=== PATIENT | male | born 1950 | race Two or more races ===

== ENCOUNTER 2020-01-15 21:11 | Inpatient (IN) | payer MEDICAID, OTHER ==
[~2020-01-15] VITALS: Ht 170.2 cm; Wt 82.5 kg
[2020-01-15] MEDS ORDERED: PANTOPRAZOLE 40mg/50ML NS AE 50 ML IV ONE (23:15)
[2020-01-15] MEDS ORDERED: SODIUM CHLORIDE 0.9% 1,000 ML IV ONE ×2 (23:15)
[2020-01-15] MEDS ORDERED: PANTOPRAZOLE 40 MG/10 ML VIAL INJ IV ONE (23:15)
[2020-01-16] VITALS (14 sets, daily range): BP systolic 132–157; BP diastolic 48–77
[2020-01-16 00:09] LABS: Basophils # (auto) 0 10 ^3/uL (0-0.2); Basophils % (auto) 0.4 % (0.0-2.0); Eosinophils # (auto) 0.1 10 ^3/uL (0-0.8); Mean Corpuscular Hgb Conc. 32.5 g/dL (32.0-36.0)
[2020-01-16 00:11] LABS: Eosinophils % (auto) 1.3 % (0.0-7.0); Hematocrit 18.6 % (41.0-53.0); Lymphocytes # (auto) 1.4 10 ^3/uL (0.4-5.4); Lymphocytes % (auto) 15.2 % (10.0-50.0); Mean Corpuscular Hemoglobin 32.5 pg (28.0-32.0); Mean Corpuscular Volume 100.1 fL (80.0-100.0); Monocytes # (auto) 0.5 10 ^3/uL (0-1.3); Monocytes % (auto) 5.4 % (0.0-12.0); Neutrophils % (auto) 77.7 % (37.0-80.0); Platelet Count (auto) 147 10^3/uL (140-450); Red Blood Cells 1.85 10^6/uL (4.5-5.90); Red Cell Distribution Width 13.7 % (11.8-14.3); White Blood Cell 9.1 10^3/uL (4.4-10.8)
[2020-01-16 00:25] LABS: INR 1.03 (0.9-1.15)
[2020-01-16 00:28] LABS: Albumin 2.6 g/dL (3.4-5.0); BUN/Creatinine Ratio 14.5; Calcium 7.5 mg/dL (8.5-10.1)
[2020-01-16 00:31] LABS: Bilirubin, Total 0.5 mg/dL (0.2-1.0); Total Protein 5.8 g/dL (6.4-8.2)
[2020-01-16 00:40] LABS: Potassium 6.2 mmol/L (3.5-5.1)
[2020-01-16] MEDS ORDERED: ONDANSETRON HCL 4 MG/2 ML VIAL IV ONE (00:45)
[2020-01-16] MEDS ORDERED: ALBUTEROL SULF 2.5 MG/0.5ML(0.5%) NEB SOLN NEB ONE (00:45)
[2020-01-16] MEDS ORDERED: MORPHINE SULFATE 4 MG/ML SYR/VIAL IV ONE (00:45)
[2020-01-16] MEDS ORDERED: InsuLIN REG 1unit/0.01ml Soln (100units/ml) IV ONE (00:45)
[2020-01-16] MEDS ORDERED: SODIUM BICARBONATE 8.4% INJ 50ML SYRINGE IV ONE (00:45)
[2020-01-16] MEDS ORDERED: CALCIUM GLUC 4.65meq/50ml D5AE 50 ML IV ONE (00:45)
[2020-01-16] MEDS ORDERED: DEXTROSE (50%) 50ML SYRG IV ONE (00:45)
[2020-01-16] MEDS ORDERED: NITROGLYCERIN 0.4 MG SL TAB SL PRN (02:00)
[2020-01-16] MEDS ORDERED: MORPHINE SULF INJ 2 MG/ML SYRINGE 1ML IV PRN (02:00)
[2020-01-16] MEDS ORDERED: ACETAMINOPHEN 325 MG TAB PO PRN (02:52)
[2020-01-16 04:47] LABS: Urine Bacteria NONE SEEN /hpf (None Seen); Urine Blood Negative /uL (Negative); Urine Hyaline Cast FEW /lpf (0 - 2); Urine Specific Gravity 1.014 (1.001-1.035); Urine WBC <1 /hpf (0 - 3)
--- NOTE | 2020-01-16 05:00 | NUR ---
Telemetry admit from ER RINKU REESE admitted to Telemetry unit after SBAR received. Patient oriented to RUBI MCGREGOR, RN primary RN, unit, room, bed, and unit policies regarding patient care and visiting hours. Patient now on continuous telemetry monitoring, tele box #39 and telemetry reading on arrival to unit is NSR. Patient placed on bedside weighed by bedscale and encouraged to call if they need something. Patient being transfusing 1 unit PRBC. Patient safety measures in place bed in lowest position, side rails up x2, and call light within reach. All questions and concerns addressed, patient verbalized understanding.
--- NOTE | 2020-01-16 07:10 | NUR ---
REPORT GIVEN TO SAUL GLOVER. PATIENT ALERT AND ORIENTED FREE OF PAIN OR DISTRESS.
--- NOTE | 2020-01-16 07:25 | NUR ---
OPENING SHIFT NOTE: PATIENT RESTING IN BED, BLOOD TRANSFUSION ON FIRST UNIT PRBC'S ALMOST COMPLETE. VS OBTAINED, STABLE. PATIENT A/OX4 COOPERATIVE, RESPIRATIONS EVEN AND UNLABORED. CALL LIGHT WITHIN REACH FALL PRECAUTIONS IN PLACE, WILL CONTINUE TO MONITOR.
--- NOTE | 2020-01-16 12:12 | NUR ---
MD GORDON ROUNDING.
--- NOTE | 2020-01-16 12:21 | NUR ---
PLAN FOR EGD 01/16 MD GORDON ABLE TO TRANSLATE PLAN OF CARE WITH BELEN GALEAS.
--- NOTE | 2020-01-16 12:53 | NUR ---
IN HOUSE COVID: COVID SAMPLE WALKED TO LAB.
[2020-01-16 13:36] LABS: Hematocrit 25.8 % (41.0-53.0); Hemoglobin 8.5 g/dL (13.5-17.5); Mean Corpuscular Hemoglobin 31.4 pg (28.0-32.0); Mean Corpuscular Hgb Conc. 33.1 g/dL (32.0-36.0); Mean Corpuscular Volume 94.9 fL (80.0-100.0); Platelet Count (auto) 125 10^3/uL (140-450); Red Blood Cells 2.72 10^6/uL (4.5-5.90); Red Cell Distribution Width 16.5 % (11.8-14.3); White Blood Cell 8.9 10^3/uL (4.4-10.8)
[2020-01-16 13:39] LABS: Basophils % (manual) 0 (0.0-2.0); Blast Cells 0; Myelocytes % 0; Promyelocytes % 0; Reactive Lymphocytes 0
[2020-01-16 13:53] LABS: Albumin 2.9 g/dL (3.4-5.0); Calcium 7.8 mg/dL (8.5-10.1); Magnesium 2.9 mg/dL (1.6-2.6)
[2020-01-16 13:56] LABS: BUN/Creatinine Ratio 17.8; Bilirubin, Total 0.7 mg/dL (0.2-1.0); Phosphorus 3.8 mg/dL (2.5-4.90); Total Protein 5.9 g/dL (6.4-8.2)
[2020-01-16 14:18] LABS: Potassium 5.9 mmol/L (3.5-5.1)
[2020-01-16 14:46] LABS: Band Neutrophils % (manual) 5; Eosinophils % (manual) 1 (0-7); Lymphocytes % (manual) 18 (10.0-50.0); Metamyelocytes % 2; Monocytes % (manual) 7 (0-12)
--- NOTE | 2020-01-16 18:51 | NUR ---
CARE ENDORSED TO NOC RN.
--- NOTE | 2020-01-16 19:30 | NUR ---
Opening Shift Note Patient is resting with eyes closed on right side. Patient is lethargic with no s/s of acute distress or SOB. Patient skin assessed for color, patient does not currently look pale. Patient feels hungry, but has been educated that he cannot eat due to GI bleed and procedure pending for tomorrow morning. Patient bed locked in lowest position w/ HOB at 30 degrees. Will continue to monitor patient.
--- NOTE | 2020-01-16 20:20 | NUR ---
Patient Nausea Given anti-nausea medication as prescribed.
[2020-01-16] MEDS: ONDANSETRON HCL 4 MG/2 ML VIAL IV PRN (23:21)
--- NOTE | 2020-01-16 23:33 | NUR ---
Patient Complains of Abdominal Pain Paged MD and spoke with exchange. Orders received for pain.
[2020-01-16] MEDS: MORPHINE SULF INJ 2 MG/ML SYRINGE 1ML IV PRN (23:53)
[2020-01-17] VITALS (7 sets, daily range): BP systolic 118–152; BP diastolic 44–69
[2020-01-17 01:16] LABS: Basophils # (auto) 0 10 ^3/uL (0-0.2); Basophils % (auto) 0.2 % (0.0-2.0); Eosinophils # (auto) 0.4 10 ^3/uL (0-0.8); Eosinophils % (auto) 3.7 % (0.0-7.0); Hematocrit 32.9 % (41.0-53.0); Hemoglobin 9.6 g/dL (13.5-17.5); Lymphocytes # (auto) 1.2 10 ^3/uL (0.4-5.4); Lymphocytes % (auto) 11.9 % (10.0-50.0); Mean Corpuscular Hemoglobin 31.2 pg (28.0-32.0); Mean Corpuscular Hgb Conc. 29.1 g/dL (32.0-36.0); Mean Corpuscular Volume 107.4 fL (80.0-100.0); Monocytes % (auto) 9.9 % (0.0-12.0); Neutrophils # (auto) 7.2 10 ^3/uL (1.6-8.6); Neutrophils % (auto) 74.3 % (37.0-80.0); Nucleated Red Blood Cells % 0.1 %; Platelet Count (auto) 150 10^3/uL (140-450); Red Blood Cells 3.06 10^6/uL (4.5-5.90); Red Cell Distribution Width 18.3 % (11.8-14.3); White Blood Cell 9.7 10^3/uL (4.4-10.8)
--- NOTE | 2020-01-17 02:40 | NUR ---
Patient Complains of Pain in Right side neck IV Patient was educated on the purpose of keeping the 18 gauge IV. Patient insisted it be taken out because, per patient " it makes my whole right side hurt." Patient refused the IV stay in, IV was D/C and catheter was intact. No trauma to site and patient is laying comfortably in bed.
--- NOTE | 2020-01-17 08:10 | NUR ---
Patient sitting on side of bed with no distress noted. Denies any pain at this time. Patient stable.
[2020-01-17] MEDS ORDERED: FLUMAZENIL 0.1 MG/ML INJ 10ML MDV IV ONE (08:23)
[2020-01-17] MEDS ORDERED: NALOXONE HCL 0.4 MG/ML VIAL ONE (08:23)
[2020-01-17] MEDS ORDERED: LIDOCAINE VISCOUS 2% 15ML UD ONE (08:23)
[2020-01-17] MEDS ORDERED: SODIUM CHLORIDE LOCK 10 ML ONE (08:23)
[2020-01-17] MEDS ORDERED: MIDAZOLAM HCL 5 MG/ML-1ML VIAL ONE (08:24)
[2020-01-17] MEDS ORDERED: fentaNYL CITRATE 100 MCG/2 ML VL ONE (08:24)
[2020-01-17] MEDS ORDERED: diphenhdrAMINE HCL 50 MG/1 ML VL ONE (08:24)
--- NOTE | 2020-01-17 08:30 | NUR ---
Patient taken to pre-op in stable condition for EGD.
--- NOTE | 2020-01-17 09:40 | NUR ---
Patient returned to unit in stable condition with 22 gauge IV in left foot. Patient denies any pain.
--- NOTE | 2020-01-17 11:15 | NUR ---
Patient resting comfortably in bed with no distress noted. Emptied 300mls of clear, yellow urine from urinal. Patient stable.
--- NOTE | 2020-01-17 13:50 | NUR ---
Patient sitting in chair at bedside; denies any pain at this time. Patient stable.
--- NOTE | 2020-01-17 15:45 | NUR ---
Patient resting comfortably in bed with no distress noted at this time. Patient stable.
--- NOTE | 2020-01-17 17:20 | NUR ---
Patient resting comfortably in bed with no distress noted. Patient stable.
[2020-01-17] MEDS: SUCRALFATE 1 GM/10 ML ORAL SUSP GT SCH (17:41)
[2020-01-17] MEDS: PANTOPRAZOLE 40 MG/10 ML VIAL INJ IV SCH ×2 (17:42→21:30)
--- NOTE | 2020-01-17 17:45 | NUR ---
Scheduled medications given per order. Patient stable at this time.
--- NOTE | 2020-01-17 18:45 | NUR ---
Patient ambulating in room. Patient stable throughout shift.
--- NOTE | 2020-01-17 19:30 | NUR ---
Opening Shift Note Assumed patient care from Lucía GLOVER. Patient AOx4 and is sitting in bedside Chair. No s/s of distress or SOB. Patient still complains of soreness in right neck to elbow. Patient has no other pain. Bed is locked in lowest position and call light is within reach if needed. Will continue to monitor.
--- NOTE | 2020-01-17 19:39 | NUR ---
Dialysis Consult Has been called in via [employer] for Meliton Dwyer to Consult.
--- NOTE | 2020-01-17 21:20 | NUR ---
IV removal on Right Hand IV infiltrated, site is puffy and painful. IV DC'd with sterile technique, catheter fully intact. Pressure dressing applied to site. Patient tolerated procedure well.
[2020-01-17] MEDS: MORPHINE SULF INJ 2 MG/ML SYRINGE 1ML IV PRN (21:31)
[2020-01-18] MEDS: MORPHINE SULF INJ 2 MG/ML SYRINGE 1ML IV PRN (04:54)
[2020-01-18] MEDS: ONDANSETRON HCL 4 MG/2 ML VIAL IV PRN (04:58)
--- NOTE | 2020-01-18 05:15 | NUR ---
Patient Complaining of Right Neck Pain Patient uncomfortable and grasping and rubbing right neck and arm. Tried to identify understanding of pain and patient said his neck hurts and he thinks it was because he had an IV in that area. After IJ in right neck was D/C'd the previous night due to tenderness and pain, he said the pain is still there today. Will pass on to Morning RN to make attending aware.
[2020-01-18 05:30] VITALS: BP 144/67
[2020-01-18] MEDS: SUCRALFATE 1 GM/10 ML ORAL SUSP GT SCH ×3 (06:44→17:22)
[2020-01-18 08:30] VITALS: BP 140/70
[2020-01-18 09:00] VITALS: BP 140/70
[2020-01-18] MEDS: PANTOPRAZOLE 40 MG/10 ML VIAL INJ IV SCH (10:40)
--- NOTE | 2020-01-18 10:40 | NUR ---
Scheduled IVP medication given per order. Patient resting comfortably in bed with no complaint of pain at this time. Patient stable.
--- NOTE | 2020-01-18 12:21 | NUR ---
Nutrition Assessment Notes please see attached link for complete assessment. Est energy needs BW 82 [id number] kcal (27-30 kcal/kg BW), Est protein needs: 98-114 g (1.2-1.4g/kg BW). Will reassess prn. Addendum: 01/18/20 at [address] Amended: Links added.
--- NOTE | 2020-01-18 12:30 | NUR ---
Patient sitting in chair at bedside. Scheduled medication given per order. Patient stable at this time.
[2020-01-18 13:00] VITALS: BP 153/72
--- NOTE | 2020-01-18 13:45 | NUR ---
Paged Dr. Pan Wright regarding hemodialysis for patient. Left message. Awaiting call back.
--- NOTE | 2020-01-18 13:50 | NUR ---
Patient resting quietly in bed with no distress noted at this time. Patient stable.
--- NOTE | 2020-01-18 14:20 | NUR ---
Second page to Dr. Pan Wright regarding hemodialysis for Mr. Argueta. Left message again. Awaiting call back.
--- NOTE | 2020-01-18 15:00 | NUR ---
Dr. Meliton Dwyer was paged and message left twice regarding nephro consult.
--- NOTE | 2020-01-18 15:18 | NUR ---
PAGED NEPHRO DR Sharri RAND REGARDING CONSULT AND POSSIBLE DIALYSIS TX, PRIMARY RN LOVE NOTIFIED
--- NOTE | 2020-01-18 16:30 | NUR ---
Patient stable with Dr. Merrill at bedside. Patient stable at this time.
[2020-01-18] MEDS ORDERED: PANT40TA2 PO (16:39)
[2020-01-18] MEDS ORDERED: SUCR1SUS5 PO (16:39)
[2020-01-18] MEDS ORDERED: SODIUM ZIRCONIUM CYCL 10 GM PAK PO ONE (16:45)
[2020-01-18 17:15] VITALS: BP 147/52
--- NOTE | 2020-01-18 17:25 | NUR ---
Scheduled medications given per order. Patient resting comfortably in bed with no distress noted. Stable.
--- NOTE | 2020-01-18 18:45 | NUR ---
Discharge instructions Both written and verbal discharge instructions given to patient via process control programmer, August. Advised that he needs to lease picker his prescriptions from his pharmacy. Patient verbalized understanding of instructions. All belongings with patient. Patient stable at this time.
--- NOTE | 2020-01-18 19:00 | NUR ---
Discharge Peripheral IV removed intact with no active bleeding, site covered with gauze. Patient discharged to home in stable condition. Reiterated that patient should keep his dialysis appointment tomorrow morning at 8:30 am.
== END 2020-01-18 19:10 | disposition home or self-care (01) | DRG 241 ==
LOC: ER 21:11 → EDBD 21:11 → TELE-CENTR 21:12
PROVIDERS: ADMIT Internal Medicine; ATTEND Internal Medicine
PROC: 30230N1 Transfusion of Nonautologous Red Blood Cells into Peripheral Vein, Open Approach (ICD-10-PCS; principal; 2020-01-16)
PROC: 0DB68ZX Excision of Stomach, Via Natural or Artificial Opening Endoscopic, Diagnostic (ICD-10-PCS; 2020-01-16)
DX: K29.71 Gastritis, unspecified, with bleeding (principal); K25.4 Chronic or unspecified gastric ulcer with hemorrhage; I25.10 Atherosclerotic heart disease of native coronary artery without angina pectoris; D62 Acute posthemorrhagic anemia; E87.5 Hyperkalemia; N18.6 End stage renal disease; E11.22 Type 2 diabetes mellitus with diabetic chronic kidney disease; D63.1 Anemia in chronic kidney disease; I71.4 Abdominal aortic aneurysm, without rupture; K80.20 Calculus of gallbladder without cholecystitis without obstruction; Z20.828 Contact with and (suspected) exposure to other viral communicable diseases; Z82.49 Family history of ischemic heart disease and other diseases of the circulatory system; Z83.3 Family history of diabetes mellitus; Z99.2 Dependence on renal dialysis; Z95.1 Presence of aortocoronary bypass graft; Z79.84 Long term (current) use of oral hypoglycemic drugs; E88.09 Other disorders of plasma-protein metabolism, not elsewhere classified; J96.20 Acute and chronic respiratory failure, unspecified whether with hypoxia or hypercapnia
CPT/HCPCS: 36415; 43239; 71045; 74176; 80053; 81001; 82962; 83735; 84100; 85007; 85025; 85027; 85610; 85730; 86850; 86900; 86901; 86920; 93005; 94644; C9113; G0378; J0610; J1815; J2250; J2405